=== PATIENT | male | born 1975 | race Caucasian/White ===

== ENCOUNTER 2024-04-13 06:46 | Day surgery (SDC) | payer MEDICAID ==
[~2024-04-13] VITALS: Ht 167.6 cm; Wt 68.9 kg
[2024-04-13] MEDS ORDERED: MEPERIDINE 100 MG INJ. 100 MG/ML VIAL ONE (07:17)
[2024-04-13] MEDS ORDERED: MIDAZOLAM HCL 5 MG/5 ML VIAL ONE (07:17)
[2024-04-13 12:13] VITALS: BP_SYST 124; PULSE 70; RESP 20; TEMP 97.4; O2SAT 70
== END 2024-04-13 09:38 | disposition home or self-care (01) ==
LOC: SDS 06:46 → SMU 06:47 → SDS 09:38
PROVIDERS: ATTEND Student in an Organized Health Care Education/Training Program
DX: R19.4 Change in bowel habit (principal); K63.5 Polyp of colon; K57.30 Diverticulosis of large intestine without perforation or abscess without bleeding; K64.8 Other hemorrhoids; K64.4 Residual hemorrhoidal skin tags; K21.9 Gastro-esophageal reflux disease without esophagitis; E78.00 Pure hypercholesterolemia, unspecified; Z87.891 Personal history of nicotine dependence; Z90.49 Acquired absence of other specified parts of digestive tract; Z79.899 Other long term (current) drug therapy
CPT/HCPCS: 45385; 88305; 99152; 99153; G0378; J2250; J2175